=== PATIENT | female | born 1995 | race African-American/Black ===

== ENCOUNTER 2019-10-06 20:25 | Inpatient (IN) | payer OTHER ==
[2019-10-06] MEDS ORDERED: AMPICILLIN SODIUM 2 GM VIAL ONE (21:40)
[2019-10-06] MEDS ORDERED: BUTORPHANOL TARTRATE 1 MG/ML VIAL ONE ×2 (21:41)
[2019-10-06] MEDS ORDERED: PROMETHAZINE HCL 25 MG/1 ML VIAL ONE (21:41)
[2019-10-06 22:08] LABS: BASO % 0.5 % (0-2.0); EOS % 0.2 % (0-4.5); HEMATOCRIT 32.8 % (32.4-45.2); HEMOGLOBIN 10.8 GM/dL (10.7-15.3); LYMPH % 11.1 % (8-40); MCH 29.1 pg (25.7-33.7); MEAN CELL VOLUME 88.2 fl (80-96); MEAN PLT VOLUME 8.7 fl (7.5-11.1); MONO % 10.7 % (3.8-10.2); NEUT % 77.5 % (42.8-82.8); PLATELET COUNT 175 K/MM3 (134-434); RBC 3.72 M/mm3 (3.60-5.2); RDW 16.1 % (11.6-15.6); WHITE BLOOD COUNT 12.5 K/mm3 (4.0-10.0)
[2019-10-06 22:16] LABS: INR 0.97 (0.83-1.09); PROTHROMBIN TIME (PATIENT) 11.4 SEC (9.7-13.0)
[2019-10-06 22:19] LABS: ACTIVATED PTT 26.9 SECONDS (25.2-36.5)
[2019-10-06] MEDS ORDERED: BUTORPHANOL TARTRATE 1 MG/ML VIAL IVPB ONE (22:21)
[2019-10-06] MEDS ORDERED: PROMETHAZINE HCL 25 MG/1 ML VIAL IVPUSH ONE (22:21)
[2019-10-06] MEDS ORDERED: AMPICILLIN - 2 GM in SODIUM CHLORIDE 100 ML IVPB ONE (22:21)
[2019-10-06] MEDS ORDERED: ELECTROLYTE-148 SOLN 1,000 ML IV SCH ×2 (22:30→22:45)
[2019-10-06] MEDS ORDERED: LIDOCAINE HCL 1% PRESERVATIVE FREE - 30ML VIAL ONE (22:42)
[2019-10-06] MEDS ORDERED: OXYTOCIN 20 UNITS in 0.9% NS 20 UNIT/1,000 ML INFUS.BAG IV ONE (22:42)
[2019-10-06 22:44] LABS: BLOOD UREA NITROGEN 5.9 mg/dL (7-18); CALCIUM 8.6 mg/dL (8.5-10.1); CREATININE 0.5 mg/dL (0.55-1.3); POTASSIUM 3.6 mmol/L (3.5-5.1)
[2019-10-06] MEDS ORDERED: PCA PUMP NR ONE (22:50)
[2019-10-06] MEDS ORDERED: FENTANYL/BUPIVACAINE/NS/PF - PCEA - 50 ML DISP.SYRIN EP ONE (22:50)
[2019-10-06] MEDS ORDERED: NALOXONE HCL 0.4 MG/ML VIAL IVPUSH PRN (23:00)
[2019-10-06] MEDS ORDERED: LIDO 2%/EPI 1:200000 PRESRVFRE (20 ML SDVIAL) ONE (23:03)
[2019-10-06] MEDS ORDERED: BUPIVACAINE HCL/PF 0.25% (2.5MG/ML) 10 ML VIAL ONE (23:04)
[2019-10-06 23:35] LABS: HIV INTERPRETATION NEGATIVE (NEGATIVE)
[2019-10-07] MEDS ORDERED: AMPICILLIN SODIUM 1 GM VIAL ONE (01:21)
[2019-10-07 01:45] VITALS: BMI 36.3
[2019-10-07] MEDS ORDERED: AMPICILLIN - 1 GM in SODIUM CHLORIDE 100 ML IVPB SCH (02:31)
[2019-10-07] MEDS: METHYLERGONOVINE MALEATE 0.2 MG/1 ML AMP IM PRN ×2 (03:00→06:00)
[2019-10-07] MEDS ORDERED: BENZOCAINE 28 GM HEMORRHOIDAL OINTMENT TP PRN (03:46)
[2019-10-07] MEDS ORDERED: WITCH HAZEL 50% (TUCKS) 40 PAD/JAR PAD TP PRN (03:46)
[2019-10-07] MEDS ORDERED: BISACODYL 10 MG SUPP.RECT RC PRN (03:46)
[2019-10-07] MEDS ORDERED: OXYTOCIN 20 UNITS in 0.9% NS 20 UNIT/1,000 ML INFUS.BAG IV SCH (04:00)
[2019-10-07] MEDS: ACETAMINOPHEN 325 MG TABLET (FP) PO PRN ×3 (04:50→21:37)
[2019-10-07] MEDS: IBUPROFEN 600 MG TABLET (FP) PO PRN ×3 (04:50→21:36)
[2019-10-07] MEDS ORDERED: ACETAMINOPHEN 325 MG TABLET (FP) ONE (04:55)
[2019-10-07] MEDS ORDERED: IBUPROFEN 600 MG TABLET (FP) PO ONE (04:56)
[2019-10-07] MEDS: BENZOCAINE 20% 57 GM BOTTLE TP PRN ×2 (05:38→15:45)
[2019-10-07 08:14] LABS: POC NITRAZINE POS
[2019-10-07] MEDS: PRENATAL VITAMINS W/ FOLIC ACID TABLET (FP) PO SCH (10:31)
[2019-10-07] MEDS: FERROUS SO4 325 MG TABLET (FP) PO SCH ×2 (10:31→21:36)
[2019-10-07] MEDS: FENTANYL/BUPIVACAINE/NS/PF - PCEA - 50 ML DISP.SYRIN EP SCH (15:34)
[2019-10-08] MEDS: FENTANYL/BUPIVACAINE/NS/PF - PCEA - 50 ML DISP.SYRIN EP SCH (00:13)
[2019-10-08 09:04] LABS: BASO % 0.5 % (0-2.0); EOS % 0.4 % (0-4.5); LYMPH % 20.5 % (8-40); MCH 29.4 pg (25.7-33.7); MCHC 33.3 g/dl (32.0-36.0); MEAN CELL VOLUME 88.1 fl (80-96); MEAN PLT VOLUME 8.4 fl (7.5-11.1); MONO % 11.6 % (3.8-10.2); PLATELET COUNT 180 K/MM3 (134-434); RBC 3.06 M/mm3 (3.60-5.2); RDW 16.2 % (11.6-15.6); WHITE BLOOD COUNT 11.1 K/mm3 (4.0-10.0)
[2019-10-08] MEDS: FERROUS SO4 325 MG TABLET (FP) PO SCH (10:42)
[2019-10-08] MEDS: PRENATAL VITAMINS W/ FOLIC ACID TABLET (FP) PO SCH (10:42)
[2019-10-08 18:31] VITALS: BP 98/62; PULSE 66; TEMP 98.3
[2019-10-08] MEDS ORDERED: SENNOSIDES/DOCUSATE COMBO (SENNA PLUS) TABLET (UD) PO PRN (22:00)
== END 2019-10-08 18:20 | disposition home or self-care (01) | DRG 560 ==
LOC: JDEL 20:25 → JLDR 21:15 → J3W 10-07 05:28
PROVIDERS: ADMIT Obstetrics & Gynecology; ATTEND Obstetrics & Gynecology
PROC: 0KQM0ZZ Repair Perineum Muscle, Open Approach (ICD-10-PCS; principal; 2019-10-07)
PROC: 10E0XZZ Delivery of Products of Conception, External Approach (ICD-10-PCS; 2019-10-07)
DX: O70.1 Second degree perineal laceration during delivery (principal); O69.81X0 Labor and delivery complicated by cord around neck, without compression, not applicable or unspecified; Z3A.38 38 weeks gestation of pregnancy; Z37.0 Single live birth
CPT/HCPCS: 36415; 36600; 59409; 80048; 82803; 83986-QW; 85025; 85610; 85730; 86780; 86850; 86900; 86901; 87389; U0003